=== PATIENT | female | born 2000 | race Caucasian/White ===

== ENCOUNTER 2019-05-30 17:22 | Emergency (ER) | payer MEDICAID, MEDICARE ==
[~2019-05-30] VITALS: Ht 157.5 cm; Wt 68.0 kg
[2019-05-30 17:35] VITALS: BP 116/77
--- NOTE | 2019-05-30 17:49 | NUR ---
19 Y FEMALE C/O BIA EAR PAIN X1 MONTH, STATED " SOMETHING IN MY EAR". WAS USING SOME HOME HERB REMEDIES, DID NOT WORK. PRESSURE PAIN 2/10. NO DRAINAGE AT THIS TIME. UPON INSPECTION, NO FOREIGN OBJECT OBSERVED. VSS AT THIS TIME. PT [id number]. BED IS DOWN, LOCKED, BED RAIL X 1, ERMD TO SEE PT. NO MED HX.
[2019-05-30 18:50] VITALS: BP 111/70
== END 2019-05-30 18:50 | disposition home or self-care (01) ==
LOC: MED 17:22
DX: H92.01 Otalgia, right ear (principal); Z98.890 Other specified postprocedural states
CPT/HCPCS: 99282

== ENCOUNTER 2022-10-05 03:40 | Emergency (ER) | payer MEDICAID ==
[~2022-10-05] VITALS: Ht 157.5 cm; Wt 72.6 kg
[2022-10-05 03:49] VITALS: BP 131/72
--- NOTE | 2022-10-05 03:51 | NUR ---
SWAB FOR BAILEY,INFLUENZA SENT TO LAB
--- NOTE | 2022-10-05 03:52 | NUR ---
ZACH MANZANARES A/W BED AMBULATORY
--- NOTE | 2022-10-05 06:00 | NUR ---
ALL RESULTS BACK AND NOTED BY ERMD AND FOR D/C
[2022-10-05] MEDS ORDERED: BENZ150C2 PO (06:19)
[2022-10-05] MEDS ORDERED: IBUP-2213 PO (06:19)
[2022-10-05 06:20] VITALS: BP 119/80
--- NOTE | 2022-10-05 06:20 | NUR ---
Patient discharged with v/s stable. Written and verbal after care instructions given and explained. Patient alert, oriented and verbalized understanding of instructions. Ambulatory with steady gait. All questions addressed prior to discharge. ID band removed. Patient advised to follow up with PMD. Rx of IBUPROFEN, BENZONATATE given. Patient educated on indication of medication including possible reaction and side effects. Opportunity to ask questions provided and answered.
== END 2022-10-05 06:20 | disposition home or self-care (01) ==
LOC: MED 03:40
DX: J06.9 Acute upper respiratory infection, unspecified (principal); Z20.822 Contact with and (suspected) exposure to COVID-19; B34.9 Viral infection, unspecified; Z79.899 Other long term (current) drug therapy
CPT/HCPCS: 99283